=== PATIENT | male | born 1985 | race Hispanic/Latino ===

== ENCOUNTER 2017-05-12 05:44 | Emergency (ER) | payer BC ==
[2017-05-12 07:28] LABS: CREATINE KINASE, TOTAL 344 U/L (21-232); MYOGLOBIN 55 ng/mL (10-92); TROPONIN I < 0.04 ng/mL (0.00-0.06)
== END 2017-05-12 08:05 | disposition home or self-care (01) ==
LOC: EDH 05:44
DX: R07.9 Chest pain, unspecified (principal); Z72.0 Tobacco use
CPT/HCPCS: 36415; 82550; 82553; 83874; 84484; 93005